=== PATIENT | male | born 1950 | race Caucasian/White ===

== ENCOUNTER 2019-07-01 07:38 | Inpatient (IN) | payer MEDICAID ==
[~2019-07-01] VITALS: Ht 170.2 cm; Wt 84.4 kg
[2019-07-01] MEDS ORDERED: ACETAMINOPHEN 500MG TABLET ONE (08:18)
[2019-07-01 09:13] LABS: HEMATOCRIT. 38.1 % (42.0-52.0); HEMOGLOBIN. 13.3 g/dL (14.0-18.0); MEAN CORPUSCULAR HEMOGLOBIN 31.3 pg (28.0-32.0); MEAN CORPUSCULAR VOLUME 89.6 fL (80.0-94.0); MEAN PLATELET VOLUME 6.8 fl (7.4-10.4); PLATELET 238 x1000/uL (130-400); RED BLOOD CELL COUNT 4.25 mill/uL (4.7-6.1); RED CELL DISTRIBUTION WIDTH 12.8 % (11.6-14.6)
[2019-07-01 09:19] LABS: CHLORIDE 106 mEq/L (98-107)
[2019-07-01 09:27] LABS: CREATINE KINASE 107 IU/L (39-308)
[2019-07-01 09:28] LABS: D-DIMER 0.8 mg/L FEU (<0.50); PROTHROMBIN TIME 10.7 sec (9.6-11.0)
[2019-07-01 09:57] LABS: PLATELET ESTIMATE NORMAL
[2019-07-01] MEDS ORDERED: TAMS-11 MT (10:40)
[2019-07-01] MEDS ORDERED: AMLO-375 MT (10:40)
[2019-07-01 12:30] VITALS: BP 145/67
[2019-07-01 12:41] VITALS: BP 145/67
[2019-07-01 13:05] LABS: CLARITY URINE CLEAR (CLEAR); COLOR URINE DARK YELLOW (YELLOW); KETONES URINE 1+ (NEGATIVE); LEUKOCYTE ESTERASE URINE NEGATIVE (NEGATIVE); NITRITE URINE NEGATIVE (NEGATIVE); OCCULT BLOOD URINE NEGATIVE (NEGATIVE); PH URINE 5.5 (4.5-8.0); PROTEIN URINE 2+ (NEGATIVE)
[2019-07-01] MEDS ORDERED: ZOLPIDEM TARTRATE 5MG TABLET PO PRN (14:00)
[2019-07-01] MEDS ORDERED: GUAIFENESIN 200MG/10ML SUGAR FREE UDC PO PRN (14:00)
[2019-07-01] MEDS ORDERED: MAGNESIUM/ALUMINUM HYDROXIDE/SIMETHICONE 30ML UDC PO PRN (14:00)
[2019-07-01] MEDS ORDERED: DIPHENHYDRAMINE 50MG/ML VIAL IV PRN (14:00)
[2019-07-01] MEDS ORDERED: ONDANSETRON HCL 4MG/2ML INJ IV PRN (14:00)
[2019-07-01] MEDS ORDERED: ALBUTEROL 6.7GM HFA INHALER ORI PRN (14:00)
[2019-07-01] MEDS: SODIUM CHLORIDE 0.9% INJ 3ML FLUSH IVF SCH ×2 (14:15→21:23)
[2019-07-01] MEDS ORDERED: ENOXAPARIN 40MG/0.4ML SYR SUBCUT SCH (15:00)
[2019-07-01] MEDS ORDERED: POTASSIUM CHLORIDE 20MEQ TABLET SR PO NR (15:00)
[2019-07-01 16:00] VITALS: BP 115/80
[2019-07-01] MEDS: AZITHROMYCIN 250 MG in DEXT 5% WATER 250 ML IV SCH (16:48)
[2019-07-01] MEDS: ACETAMINOPHEN 325MG TABLET PO PRN ×2 (17:44→21:46)
[2019-07-01 20:36] VITALS: BP 156/74
[2019-07-01] MEDS: GUAIFENESIN 600MG ER TABLET PO SCH (21:23)
[2019-07-01] MEDS: METHYLPREDNISOLONE SOD SUCC 40 MG/ML VIAL IV SCH (23:01)
[2019-07-01] MEDS ORDERED: ENOXAPARIN 30MG/0.3ML SYR SUBCUT SCH (23:30)
[2019-07-02 00:50] VITALS: BP 111/63
[2019-07-02 04:00] VITALS: BP 111/68
[2019-07-02] MEDS: SODIUM CHLORIDE 0.9% INJ 3ML FLUSH IVF SCH ×3 (05:07→21:23)
[2019-07-02 08:00] VITALS: BP 120/69
[2019-07-02] MEDS: ENOXAPARIN 80MG/0.8ML SYR SUBCUT SCH ×2 (08:52→21:22)
[2019-07-02] MEDS: METHYLPREDNISOLONE SOD SUCC 40 MG/ML VIAL IV SCH (08:52)
[2019-07-02] MEDS: GUAIFENESIN 600MG ER TABLET PO SCH ×2 (08:53→21:22)
[2019-07-02 12:00] VITALS: BP 132/75
[2019-07-02] MEDS: CEFTRIAXONE 1 G PREMIX 50 ML IV SCH (13:18)
[2019-07-02] MEDS: BENZONATATE 100MG CAPSULE PO PRN (14:39)
[2019-07-02] MEDS: ALBUTEROL 6.7GM HFA INHALER ORI SCH ×2 (15:13→19:55)
[2019-07-02 16:00] VITALS: BP 118/85
[2019-07-02] MEDS: AZITHROMYCIN 250 MG in DEXT 5% WATER 250 ML IV SCH (16:32)
[2019-07-02 20:00] VITALS: BP 99/68
[2019-07-03] VITALS: BP 112/69
[2019-07-03] MEDS: ALBUTEROL 6.7GM HFA INHALER ORI SCH ×4 (02:05→20:57)
[2019-07-03 04:00] VITALS: BP 126/70
[2019-07-03] MEDS: SODIUM CHLORIDE 0.9% INJ 3ML FLUSH IVF SCH ×3 (06:08→21:51)
[2019-07-03 08:00] VITALS: BP 134/71
[2019-07-03] MEDS: ENOXAPARIN 80MG/0.8ML SYR SUBCUT SCH ×2 (08:01→20:27)
[2019-07-03] MEDS: GUAIFENESIN 600MG ER TABLET PO SCH ×2 (08:01→20:24)
[2019-07-03 12:00] VITALS: BP 142/77
[2019-07-03] MEDS: CEFTRIAXONE 1 G PREMIX 50 ML IV SCH (13:26)
[2019-07-03] MEDS: BENZONATATE 100MG CAPSULE PO PRN (13:26)
[2019-07-03 16:00] VITALS: BP 154/78
[2019-07-03] MEDS: AZITHROMYCIN 250 MG in DEXT 5% WATER 250 ML IV SCH (16:00)
[2019-07-03] MEDS: PROMETHAZINE/DEXTROMETHORPHAN 6.25-15MG/5ML BOTTLE 120ML PO PRN (16:00)
[2019-07-03 20:00] VITALS: BP 142/74
[2019-07-04] VITALS: BP 124/71
[2019-07-04] MEDS: ALBUTEROL 6.7GM HFA INHALER ORI SCH ×4 (01:18→21:36)
[2019-07-04 04:00] VITALS: BP 137/75
[2019-07-04] MEDS: SODIUM CHLORIDE 0.9% INJ 3ML FLUSH IVF SCH ×3 (06:55→21:36)
[2019-07-04 08:00] VITALS: BP 130/88
[2019-07-04] MEDS: GUAIFENESIN 600MG ER TABLET PO SCH ×2 (08:33→21:33)
[2019-07-04] MEDS: AZITHROMYCIN 250 MG TABLET PO SCH (08:33)
[2019-07-04] MEDS: ENOXAPARIN 80MG/0.8ML SYR SUBCUT SCH ×2 (08:33→21:35)
[2019-07-04 10:11] LABS: BG BASE EXCESS 1.6 mmol/L (-2.0-2.0); BG CARBOXYHEMOGLOBIN 0.3 % (0.5-1.5); BG FRACTION INSPIRED OXYGEN 99.9; BG HCO3 ACT 24.9 mmol/L (22.0-26.0); BG METHEMOGLOBIN 0.1 % (0.0-1.5); BG OXYHEMOGLOBIN 91.6 % (94.0-97.0); BG PCO2 35.3 mmHg (35.0-45.0); BG PH 7.467 (7.350-7.450); BG PO2 60.4 mmHg (75.0-100.0); BG SAMPLE SITE RIGHT RADIAL; BG TOTAL HEMOGLOBIN 14.2 g/dL (12.0-18.0); BG VENT MODE MASK - NRB
[2019-07-04 12:00] VITALS: BP 153/70
[2019-07-04] MEDS ORDERED: REMDESIVIR 200 MG in SODIUM CHLORIDE 0.9% 250 ML IV SCH (12:00)
[2019-07-04] MEDS: PROMETHAZINE/DEXTROMETHORPHAN 6.25-15MG/5ML BOTTLE 120ML PO PRN (12:26)
[2019-07-04] MEDS: CEFTRIAXONE 1 G PREMIX 50 ML IV SCH (13:58)
[2019-07-04 16:00] VITALS: BP 139/68
[2019-07-04 20:00] VITALS: BP 133/71
[2019-07-04] MEDS: ACETAMINOPHEN 325MG TABLET PO PRN (21:34)
[2019-07-04] MEDS: BENZONATATE 100MG CAPSULE PO PRN (21:34)
[2019-07-05] VITALS (54 sets, daily range): BP systolic 84–183; BP diastolic 50–95
[2019-07-05] MEDS: ALBUTEROL 6.7GM HFA INHALER ORI SCH ×2 (01:46→12:07)
[2019-07-05 05:47] LABS: CHLORIDE 109 mEq/L (98-107)
[2019-07-05 05:48] LABS: BASOPHILS % 0.3 % (0.0-2.0); EOSINOPHILS % 0.2 % (0.0-5.0); HEMATOCRIT. 38.3 % (42.0-52.0); HEMOGLOBIN. 13.4 g/dL (14.0-18.0); LYMPHOCYTES % 7.6 % (20.0-50.0); MEAN CORPUSCULAR HEMOGLOBIN 31.3 pg (28.0-32.0); MEAN CORPUSCULAR VOLUME 89.7 fL (80.0-94.0); MONOCYTES % 7.4 % (2.0-8.0); NEUTROPHILS % 84.5 % (40.0-76.0); PLATELET 368 x1000/uL (130-400); RED BLOOD CELL COUNT 4.27 mill/uL (4.7-6.1); RED CELL DISTRIBUTION WIDTH 12.9 % (11.6-14.6)
[2019-07-05] MEDS: SODIUM CHLORIDE 0.9% INJ 3ML FLUSH IVF SCH ×3 (06:10→22:06)
[2019-07-05] MEDS: BENZONATATE 100MG CAPSULE PO PRN (06:33)
[2019-07-05] MEDS: GUAIFENESIN 600MG ER TABLET PO SCH (08:28)
[2019-07-05] MEDS: AZITHROMYCIN 250 MG TABLET PO SCH (08:28)
[2019-07-05] MEDS: PROMETHAZINE/DEXTROMETHORPHAN 6.25-15MG/5ML BOTTLE 120ML PO PRN (08:28)
[2019-07-05] MEDS: ENOXAPARIN 80MG/0.8ML SYR SUBCUT SCH ×2 (08:28→20:53)
[2019-07-05] MEDS ORDERED: REMDESIVIR 100 MG in SODIUM CHLORIDE 0.9% 250 ML IV SCH (12:00)
[2019-07-05] MEDS: ACETAMINOPHEN 325MG TABLET PO PRN ×2 (13:02→20:53)
[2019-07-05] MEDS ORDERED: IPRATROPIUM/ALBUTEROL 0.5-3(2.5)MG/3ML NEB HHN PRN (14:15)
[2019-07-05] MEDS ORDERED: LORAZEPAM 2MG/ML CPJ ONE (15:45)
[2019-07-05] MEDS ORDERED: MIDAZOLAM HCL 50 MG in DEXTROSE 5% WATER 40 ML IV PRN (16:00)
[2019-07-05] MEDS ORDERED: LORAZEPAM 2MG/ML CPJ IV NR (16:15)
[2019-07-05 16:24] LABS: BG BASE EXCESS -1.2 mmol/L (-2.0-2.0); BG CARBOXYHEMOGLOBIN 0.2 % (0.5-1.5); BG DEOXYHEMOGLOBIN 13.8 % (0.0-5.0); BG FRACTION INSPIRED OXYGEN 100; BG HCO3 ACT 25.6 mmol/L (22.0-26.0); BG METHEMOGLOBIN 0.2 % (0.0-1.5); BG OXYGEN SATURATION 86.1 % (92.0-98.5); BG OXYHEMOGLOBIN 85.8 % (94.0-97.0); BG PCO2 51.5 mmHg (35.0-45.0); BG PH 7.315 (7.350-7.450); BG PO2 57.3 mmHg (75.0-100.0); BG SAMPLE SITE LEFT RADIAL; BG TIDAL VOLUME(mL) 500 mL; BG VENT MODE VENT - A/C; BG VENT RATE 18 set
[2019-07-05] MEDS: CEFTRIAXONE 1 G PREMIX 50 ML IV SCH (17:44)
[2019-07-05] MEDS: FENTANYL CITRATE/PF 1,000 MCG in SODIUM CHLORIDE 0.9% 80 ML IV PRN (17:49)
[2019-07-05] MEDS ORDERED: IPRATROPIUM/ALBUTEROL 0.5-3(2.5)MG/3ML NEB HHN SCH (18:00)
[2019-07-05 19:10] LABS: BG CARBOXYHEMOGLOBIN 0.3 % (0.5-1.5); BG DEOXYHEMOGLOBIN 0.7 % (0.0-5.0); BG FRACTION INSPIRED OXYGEN 100; BG HCO3 ACT 23.8 mmol/L (22.0-26.0); BG METHEMOGLOBIN 0.3 % (0.0-1.5); BG OXYGEN SATURATION 99.3 % (92.0-98.5); BG OXYHEMOGLOBIN 98.7 % (94.0-97.0); BG PH 7.393 (7.350-7.450); BG PO2 308.3 mmHg (75.0-100.0); BG SAMPLE SITE RIGHT RADIAL; BG TIDAL VOLUME(mL) 500 mL; BG TOTAL HEMOGLOBIN 11.6 g/dL (12.0-18.0); BG VENT MODE PRVC; BG VENT RATE 22 set
[2019-07-05] MEDS: MIDAZOLAM HCL 100 MG in DEXT 5% WATER 80 ML IV PRN (20:46)
[2019-07-05] MEDS: DEXT 5%/0.45% NACL 1000ML 1,000 ML IV SCH (20:46)
[2019-07-05] MEDS: NOREPINEPHRINE 4 MG in DEXT 5% WATER 246 ML IV PRN (23:49)
[2019-07-06] VITALS (89 sets, daily range): BP systolic 93–134; BP diastolic 56–77
[2019-07-06] MEDS: FENTANYL CITRATE/PF 1,000 MCG in SODIUM CHLORIDE 0.9% 80 ML IV PRN ×2 (00:42→16:13)
[2019-07-06 05:41] LABS: HEMATOCRIT. 35.1 % (42.0-52.0); HEMOGLOBIN. 12.2 g/dL (14.0-18.0); MEAN CORPUSCULAR HEMOGLOBIN 31.4 pg (28.0-32.0); MEAN CORPUSCULAR VOLUME 90.9 fL (80.0-94.0); MEAN PLATELET VOLUME 7.1 fl (7.4-10.4); PLATELET 392 x1000/uL (130-400); RED BLOOD CELL COUNT 3.87 mill/uL (4.7-6.1); RED CELL DISTRIBUTION WIDTH 12.7 % (11.6-14.6)
[2019-07-06] MEDS: SODIUM CHLORIDE 0.9% INJ 3ML FLUSH IVF SCH ×3 (05:46→22:00)
[2019-07-06 05:48] LABS: CHLORIDE 111 mEq/L (98-107)
[2019-07-06] MEDS: ENOXAPARIN 80MG/0.8ML SYR SUBCUT SCH ×2 (09:16→20:21)
[2019-07-06 09:22] LABS: BG BASE EXCESS 0.9 mmol/L (-2.0-2.0); BG DEOXYHEMOGLOBIN 5.3 % (0.0-5.0); BG FRACTION INSPIRED OXYGEN 75; BG HCO3 ACT 25.9 mmol/L (22.0-26.0); BG METHEMOGLOBIN 0.1 % (0.0-1.5); BG OXYGEN SATURATION 94.7 % (92.0-98.5); BG OXYHEMOGLOBIN 94.6 % (94.0-97.0); BG PCO2 42.9 mmHg (35.0-45.0); BG PH 7.399 (7.350-7.450); BG PO2 76.9 mmHg (75.0-100.0); BG SAMPLE SITE RIGHT BRACHIAL; BG TIDAL VOLUME(mL) 500 mL; BG TOTAL HEMOGLOBIN 12.2 g/dL (12.0-18.0); BG VENT MODE PRVC; BG VENT RATE 22 set
[2019-07-06 10:21] LABS: PLATELET ESTIMATE NORMAL
[2019-07-06] MEDS: MIDAZOLAM HCL 100 MG in DEXT 5% WATER 80 ML IV PRN (12:30)
[2019-07-06] MEDS: CEFTRIAXONE 1 G PREMIX 50 ML IV SCH (14:00)
[2019-07-06] MEDS ORDERED: IPRATROPIUM/ALBUTEROL 0.5-3(2.5)MG/3ML NEB HHN SCH (15:15)
[2019-07-06] MEDS: DEXT 5%/0.45% NACL 1000ML 1,000 ML IV SCH (16:12)
[2019-07-06] MEDS: ACETAMINOPHEN 325MG TABLET PO PRN (20:29)
[2019-07-07] VITALS (93 sets, daily range): BP systolic 74–146; BP diastolic 46–78
[2019-07-07] MEDS: NOREPINEPHRINE 4 MG in DEXT 5% WATER 246 ML IV PRN (02:00)
[2019-07-07 05:42] LABS: HEMATOCRIT. 33.2 % (42.0-52.0); HEMOGLOBIN. 11.5 g/dL (14.0-18.0); MEAN CORPUSCULAR HEMOGLOBIN 31.2 pg (28.0-32.0); MEAN CORPUSCULAR VOLUME 90.1 fL (80.0-94.0); MEAN PLATELET VOLUME 7.1 fl (7.4-10.4); RED BLOOD CELL COUNT 3.69 mill/uL (4.7-6.1); RED CELL DISTRIBUTION WIDTH 12.9 % (11.6-14.6)
[2019-07-07 05:51] LABS: CHLORIDE 109 mEq/L (98-107)
[2019-07-07] MEDS: FENTANYL CITRATE/PF 1,000 MCG in SODIUM CHLORIDE 0.9% 80 ML IV PRN ×2 (06:29→20:52)
[2019-07-07] MEDS: SODIUM CHLORIDE 0.9% INJ 3ML FLUSH IVF SCH ×3 (06:52→20:52)
[2019-07-07 07:14] LABS: PLATELET 384 x1000/uL (130-400); PLATELET ESTIMATE INCREASED
[2019-07-07] MEDS: ENOXAPARIN 80MG/0.8ML SYR SUBCUT SCH ×2 (08:07→20:51)
[2019-07-07] MEDS: MIDAZOLAM HCL 100 MG in DEXT 5% WATER 80 ML IV PRN (08:08)
[2019-07-07 09:04] LABS: BG BASE EXCESS -0.9 mmol/L (-2.0-2.0); BG CARBOXYHEMOGLOBIN 0.2 % (0.5-1.5); BG FRACTION INSPIRED OXYGEN 75; BG HCO3 ACT 23.6 mmol/L (22.0-26.0); BG METHEMOGLOBIN 0.3 % (0.0-1.5); BG OXYHEMOGLOBIN 94.5 % (94.0-97.0); BG PCO2 38.5 mmHg (35.0-45.0); BG PH 7.405 (7.350-7.450); BG PO2 76.4 mmHg (75.0-100.0); BG SAMPLE SITE RIGHT BRACHIAL; BG TIDAL VOLUME(mL) 500 mL; BG TOTAL HEMOGLOBIN 11.2 g/dL (12.0-18.0); BG VENT MODE PRVC; BG VENT RATE 22 set
[2019-07-07] MEDS: DEXT 5%/0.45% NACL 1000ML 1,000 ML IV SCH (12:46)
[2019-07-07] MEDS: THIAMINE HCL 100MG TABLET PO SCH (13:43)
[2019-07-07] MEDS: FOLIC ACID 1MG TABLET PO SCH (13:44)
[2019-07-07] MEDS: CEFTRIAXONE 1 G PREMIX 50 ML IV SCH (13:44)
[2019-07-07] MEDS: ACETAMINOPHEN 325MG TABLET PO PRN (23:27)
[2019-07-08] VITALS (94 sets, daily range): BP systolic 86–134; BP diastolic 45–70
[2019-07-08] MEDS: DEXT 5%/0.45% NACL 1000ML 1,000 ML IV SCH ×2 (04:09→22:12)
[2019-07-08] MEDS: MIDAZOLAM HCL 100 MG in DEXT 5% WATER 80 ML IV PRN ×2 (04:36→23:47)
[2019-07-08] MEDS: SODIUM CHLORIDE 0.9% INJ 3ML FLUSH IVF SCH ×3 (05:02→20:41)
[2019-07-08 05:49] LABS: HEMATOCRIT. 30.9 % (42.0-52.0); HEMOGLOBIN. 10.7 g/dL (14.0-18.0); MEAN CORPUSCULAR HEMOGLOBIN 31.5 pg (28.0-32.0); MEAN CORPUSCULAR VOLUME 91.1 fL (80.0-94.0); MEAN PLATELET VOLUME 7.1 fl (7.4-10.4); PLATELET 348 x1000/uL (130-400); RED CELL DISTRIBUTION WIDTH 13.4 % (11.6-14.6)
[2019-07-08 06:08] LABS: CHLORIDE 111 mEq/L (98-107)
[2019-07-08] MEDS: ALBUTEROL 6.7GM HFA INHALER ORI SCH ×2 (08:32→13:26)
[2019-07-08] MEDS: THIAMINE HCL 100MG TABLET PO SCH (09:56)
[2019-07-08] MEDS: FOLIC ACID 1MG TABLET PO SCH (09:56)
[2019-07-08] MEDS: ENOXAPARIN 80MG/0.8ML SYR SUBCUT SCH ×2 (09:57→20:40)
[2019-07-08] MEDS: ACETAMINOPHEN 325MG TABLET PO PRN (10:25)
[2019-07-08 13:20] LABS: PLATELET ESTIMATE NORMAL
[2019-07-08] MEDS: METHYLPREDNISOLONE SOD SUCC 40 MG/ML VIAL IV SCH (17:00)
[2019-07-08] MEDS: FENTANYL CITRATE/PF 1,000 MCG in SODIUM CHLORIDE 0.9% 80 ML IV PRN (20:41)
[2019-07-09] VITALS (93 sets, daily range): BP systolic 98–146; BP diastolic 53–89
[2019-07-09 05:58] LABS: CHLORIDE 109 mEq/L (98-107)
[2019-07-09] MEDS: SODIUM CHLORIDE 0.9% INJ 3ML FLUSH IVF SCH ×3 (06:46→20:48)
[2019-07-09 08:26] LABS: BG BASE EXCESS -1.7 mmol/L (-2.0-2.0); BG CARBOXYHEMOGLOBIN 0.3 % (0.5-1.5); BG DEOXYHEMOGLOBIN 2.9 % (0.0-5.0); BG FRACTION INSPIRED OXYGEN 90; BG HCO3 ACT 24.1 mmol/L (22.0-26.0); BG OXYGEN SATURATION 97.1 % (92.0-98.5); BG OXYHEMOGLOBIN 96.8 % (94.0-97.0); BG PCO2 44.9 mmHg (35.0-45.0); BG PH 7.347 (7.350-7.450); BG PO2 101.1 mmHg (75.0-100.0); BG SAMPLE SITE RIGHT RADIAL; BG TIDAL VOLUME(mL) 500 mL; BG TOTAL HEMOGLOBIN 11.8 g/dL (12.0-18.0); BG VENT MODE VENT- PRVC; BG VENT RATE 22 set
[2019-07-09] MEDS: THIAMINE HCL 100MG TABLET PO SCH (09:18)
[2019-07-09] MEDS: METHYLPREDNISOLONE SOD SUCC 40 MG/ML VIAL IV SCH ×2 (09:18→17:29)
[2019-07-09] MEDS: FOLIC ACID 1MG TABLET PO SCH (09:18)
[2019-07-09] MEDS: ENOXAPARIN 80MG/0.8ML SYR SUBCUT SCH ×2 (09:19→20:48)
[2019-07-09] MEDS: ALBUTEROL 6.7GM HFA INHALER ORI SCH ×4 (09:20→21:15)
[2019-07-09] MEDS: INSULIN GLARGINE UD 100 UNITS/ML SYR SUBCUT SCH ×2 (10:00→20:47)
[2019-07-09] MEDS: BLOOD SUGAR DIAGNOSTIC STRIP TEST SCH ×2 (13:15→17:45)
[2019-07-09] MEDS ORDERED: VANCOMYCIN 1500MG in DEXTROSE 5% WATER 250ML IV NR (16:30)
[2019-07-09] MEDS: CEFEPIME 1,000 MG in DEXTROSE 5% WATER 50 ML IV SCH (17:29)
[2019-07-09] MEDS: INSULIN LISPRO 100 UNITS/ML SUBCUT SCH ×2 (17:29→20:47)
[2019-07-09] MEDS: MIDAZOLAM HCL 100 MG in DEXT 5% WATER 80 ML IV PRN (22:34)
[2019-07-09] MEDS: FENTANYL CITRATE/PF 1,000 MCG in SODIUM CHLORIDE 0.9% 80 ML IV PRN (22:34)
[2019-07-10] VITALS (96 sets, daily range): BP systolic 100–163; BP diastolic 41–120
[2019-07-10] MEDS: ALBUTEROL 6.7GM HFA INHALER ORI SCH ×6 (01:00→20:50)
[2019-07-10] MEDS: BLOOD SUGAR DIAGNOSTIC STRIP TEST SCH ×4 (01:59→19:15)
[2019-07-10] MEDS: SODIUM CHLORIDE 0.9% INJ 3ML FLUSH IVF SCH ×3 (03:31→21:01)
[2019-07-10] MEDS: CEFEPIME 1,000 MG in DEXTROSE 5% WATER 50 ML IV SCH ×2 (05:45→17:27)
[2019-07-10] MEDS: VANCOMYCIN 1 G PREMIX 200 ML IV SCH ×2 (05:46→17:51)
[2019-07-10] MEDS: INSULIN LISPRO 100 UNITS/ML SUBCUT SCH ×4 (05:48→20:29)
[2019-07-10 05:55] LABS: HEMATOCRIT. 30.6 % (42.0-52.0); HEMOGLOBIN. 10.5 g/dL (14.0-18.0); MEAN CORPUSCULAR HEMOGLOBIN 31.3 pg (28.0-32.0); MEAN CORPUSCULAR VOLUME 91.1 fL (80.0-94.0); MEAN PLATELET VOLUME 7.2 fl (7.4-10.4); PLATELET 446 x1000/uL (130-400); RED BLOOD CELL COUNT 3.35 mill/uL (4.7-6.1); RED CELL DISTRIBUTION WIDTH 13.1 % (11.6-14.6)
[2019-07-10 06:03] LABS: CHLORIDE 109 mEq/L (98-107)
[2019-07-10] MEDS: METHYLPREDNISOLONE SOD SUCC 40 MG/ML VIAL IV SCH ×2 (08:45→16:30)
[2019-07-10] MEDS: THIAMINE HCL 100MG TABLET PO SCH (08:45)
[2019-07-10] MEDS: FOLIC ACID 1MG TABLET PO SCH (08:48)
[2019-07-10] MEDS: ENOXAPARIN 80MG/0.8ML SYR SUBCUT SCH ×2 (08:48→20:28)
[2019-07-10 10:03] LABS: BG BASE EXCESS 0.2 mmol/L (-2.0-2.0); BG CARBOXYHEMOGLOBIN 0.3 % (0.5-1.5); BG DEOXYHEMOGLOBIN 13.9 % (0.0-5.0); BG FRACTION INSPIRED OXYGEN 65; BG HCO3 ACT 28.2 mmol/L (22.0-26.0); BG METHEMOGLOBIN 0.3 % (0.0-1.5); BG OXYHEMOGLOBIN 85.5 % (94.0-97.0); BG PCO2 61.3 mmHg (35.0-45.0); BG PO2 56.2 mmHg (75.0-100.0); BG SAMPLE SITE RIGHT RADIAL; BG TIDAL VOLUME(mL) 500 mL; BG TOTAL HEMOGLOBIN 12.8 g/dL (12.0-18.0); BG VENT MODE PRVC; BG VENT RATE 22 set
[2019-07-10 10:35] LABS: PLATELET ESTIMATE SLIGHTLY INCREASED
[2019-07-10] MEDS: INSULIN GLARGINE UD 100 UNITS/ML SYR SUBCUT SCH ×2 (10:41→21:04)
[2019-07-10] MEDS: FENTANYL CITRATE/PF 1,000 MCG in SODIUM CHLORIDE 0.9% 80 ML IV PRN ×2 (12:24→23:55)
[2019-07-10] MEDS: MIDAZOLAM HCL 100 MG in DEXT 5% WATER 80 ML IV PRN (17:28)
[2019-07-11] VITALS (43 sets, daily range): BP systolic 110–167; BP diastolic 55–90
[2019-07-11] MEDS: BLOOD SUGAR DIAGNOSTIC STRIP TEST SCH ×5 (00:17→21:00)
[2019-07-11 05:02] LABS: HEMATOCRIT. 30.8 % (42.0-52.0); HEMOGLOBIN. 10.5 g/dL (14.0-18.0); MEAN CORPUSCULAR HEMOGLOBIN 31.3 pg (28.0-32.0); MEAN CORPUSCULAR VOLUME 91.9 fL (80.0-94.0); MEAN PLATELET VOLUME 7.2 fl (7.4-10.4); PLATELET 448 x1000/uL (130-400); RED BLOOD CELL COUNT 3.35 mill/uL (4.7-6.1); RED CELL DISTRIBUTION WIDTH 13.2 % (11.6-14.6)
[2019-07-11 05:10] LABS: CHLORIDE 108 mEq/L (98-107)
[2019-07-11] MEDS: SODIUM CHLORIDE 0.9% INJ 3ML FLUSH IVF SCH ×3 (05:15→22:19)
[2019-07-11] MEDS: CEFEPIME 1,000 MG in DEXTROSE 5% WATER 50 ML IV SCH ×2 (05:15→16:26)
[2019-07-11] MEDS: VANCOMYCIN 1 G PREMIX 200 ML IV SCH ×2 (05:40→16:32)
[2019-07-11] MEDS: INSULIN LISPRO 100 UNITS/ML SUBCUT SCH ×4 (07:00→21:32)
[2019-07-11 08:15] LABS: BG BASE EXCESS 2.3 mmol/L (-2.0-2.0); BG CARBOXYHEMOGLOBIN 0.2 % (0.5-1.5); BG DEOXYHEMOGLOBIN 4.8 % (0.0-5.0); BG FRACTION INSPIRED OXYGEN 90; BG HCO3 ACT 27.8 mmol/L (22.0-26.0); BG METHEMOGLOBIN 0.3 % (0.0-1.5); BG OXYGEN SATURATION 95.2 % (92.0-98.5); BG OXYHEMOGLOBIN 94.7 % (94.0-97.0); BG PCO2 47.1 mmHg (35.0-45.0); BG PH 7.389 (7.350-7.450); BG PO2 76.4 mmHg (75.0-100.0); BG SAMPLE SITE RIGHT RADIAL; BG TIDAL VOLUME(mL) 500 mL; BG TOTAL HEMOGLOBIN 10.6 g/dL (12.0-18.0); BG VENT MODE VENT- PRVC; BG VENT RATE 26 set
[2019-07-11] MEDS: ENOXAPARIN 80MG/0.8ML SYR SUBCUT SCH ×2 (09:00→21:29)
[2019-07-11] MEDS: THIAMINE HCL 100MG TABLET PO SCH (09:15)
[2019-07-11] MEDS: FOLIC ACID 1MG TABLET PO SCH (09:15)
[2019-07-11] MEDS: METHYLPREDNISOLONE SOD SUCC 40 MG/ML VIAL IV SCH ×2 (09:15→16:32)
[2019-07-11] MEDS: ALBUTEROL 6.7GM HFA INHALER ORI SCH ×4 (09:24→20:30)
[2019-07-11] MEDS: INSULIN GLARGINE UD 100 UNITS/ML SYR SUBCUT SCH ×2 (09:41→21:37)
[2019-07-11 09:46] LABS: PLATELET ESTIMATE SLIGHTLY INCREASED
[2019-07-11] MEDS ORDERED: LIDOCAINE HCL 1% 20ML VIAL (Pyxis) INJ ONE (13:07)
[2019-07-11] MEDS: CLONIDINE 0.1MG TABLET PO PRN (21:29)
[2019-07-12] VITALS (23 sets, daily range): BP systolic 117–162; BP diastolic 60–82
[2019-07-12] MEDS: ALBUTEROL 6.7GM HFA INHALER ORI SCH ×5 (00:05→21:20)
[2019-07-12] MEDS: FENTANYL CITRATE/PF 1,000 MCG in SODIUM CHLORIDE 0.9% 80 ML IV PRN (00:54)
[2019-07-12] MEDS: CEFEPIME 1,000 MG in DEXTROSE 5% WATER 50 ML IV SCH ×2 (05:22→19:53)
[2019-07-12 05:43] LABS: HEMATOCRIT. 29.6 % (42.0-52.0); HEMOGLOBIN. 10.3 g/dL (14.0-18.0); MEAN CORPUSCULAR HEMOGLOBIN 31.5 pg (28.0-32.0); MEAN CORPUSCULAR VOLUME 90.3 fL (80.0-94.0); MEAN PLATELET VOLUME 7.3 fl (7.4-10.4); PLATELET 457 x1000/uL (130-400); RED BLOOD CELL COUNT 3.27 mill/uL (4.7-6.1)
[2019-07-12 05:44] LABS: CHLORIDE 105 mEq/L (98-107)
[2019-07-12] MEDS: SODIUM CHLORIDE 0.9% INJ 3ML FLUSH IVF SCH ×3 (05:48→21:47)
[2019-07-12] MEDS: MIDAZOLAM HCL 100 MG in DEXT 5% WATER 80 ML IV PRN ×2 (05:53→19:49)
[2019-07-12] MEDS: VANCOMYCIN 1 G PREMIX 200 ML IV SCH ×2 (06:08→17:57)
[2019-07-12] MEDS: BLOOD SUGAR DIAGNOSTIC STRIP TEST SCH ×4 (06:08→21:12)
[2019-07-12] MEDS: INSULIN LISPRO 100 UNITS/ML SUBCUT SCH ×4 (06:09→21:47)
[2019-07-12] MEDS: FOLIC ACID 1MG TABLET PO SCH (09:19)
[2019-07-12] MEDS: THIAMINE HCL 100MG TABLET PO SCH (09:19)
[2019-07-12] MEDS: METHYLPREDNISOLONE SOD SUCC 40 MG/ML VIAL IV SCH ×2 (09:19→17:00)
[2019-07-12] MEDS: ENOXAPARIN 80MG/0.8ML SYR SUBCUT SCH ×2 (09:19→21:46)
[2019-07-12 09:30] LABS: BG BASE EXCESS 6.8 mmol/L (-2.0-2.0); BG CARBOXYHEMOGLOBIN 0.2 % (0.5-1.5); BG DEOXYHEMOGLOBIN 3.8 % (0.0-5.0); BG FRACTION INSPIRED OXYGEN 95; BG HCO3 ACT 31.2 mmol/L (22.0-26.0); BG METHEMOGLOBIN 0.3 % (0.0-1.5); BG OXYGEN SATURATION 96.2 % (92.0-98.5); BG OXYHEMOGLOBIN 95.7 % (94.0-97.0); BG PCO2 43.9 mmHg (35.0-45.0); BG PO2 87.7 mmHg (75.0-100.0); BG SAMPLE SITE RIGHT RADIAL; BG TIDAL VOLUME(mL) 500 mL; BG TOTAL HEMOGLOBIN 10.3 g/dL (12.0-18.0); BG VENT MODE PRVC; BG VENT RATE 26 set
[2019-07-12] MEDS: INSULIN GLARGINE UD 100 UNITS/ML SYR SUBCUT SCH ×2 (10:00→21:47)
[2019-07-12 14:07] LABS: PLATELET ESTIMATE MARKEDLY INCREASED
[2019-07-13] VITALS (58 sets, daily range): BP systolic 107–198; BP diastolic 60–93
[2019-07-13] MEDS: ALBUTEROL 6.7GM HFA INHALER ORI SCH ×5 (00:30→15:38)
[2019-07-13] MEDS: FENTANYL CITRATE/PF 1,000 MCG in SODIUM CHLORIDE 0.9% 80 ML IV PRN ×2 (02:56→15:59)
[2019-07-13] MEDS: CEFEPIME 1,000 MG in DEXTROSE 5% WATER 50 ML IV SCH ×2 (05:07→18:09)
[2019-07-13 06:06] LABS: CHLORIDE 107 mEq/L (98-107)
[2019-07-13] MEDS: BLOOD SUGAR DIAGNOSTIC STRIP TEST SCH ×3 (06:07→20:40)
[2019-07-13] MEDS: SODIUM CHLORIDE 0.9% INJ 3ML FLUSH IVF SCH ×3 (06:07→20:40)
[2019-07-13] MEDS: INSULIN LISPRO 100 UNITS/ML SUBCUT SCH ×3 (06:08→20:38)
[2019-07-13] MEDS: VANCOMYCIN 1 G PREMIX 200 ML IV SCH ×2 (06:08→18:11)
[2019-07-13 08:29] LABS: BG BASE EXCESS 6.2 mmol/L (-2.0-2.0); BG CARBOXYHEMOGLOBIN 0.1 % (0.5-1.5); BG DEOXYHEMOGLOBIN 8.3 % (0.0-5.0); BG HCO3 ACT 31.1 mmol/L (22.0-26.0); BG METHEMOGLOBIN 0.4 % (0.0-1.5); BG OXYGEN SATURATION 91.7 % (92.0-98.5); BG OXYHEMOGLOBIN 91.2 % (94.0-97.0); BG PCO2 46.4 mmHg (35.0-45.0); BG PH 7.444 (7.350-7.450); BG PO2 63.5 mmHg (75.0-100.0); BG SAMPLE SITE RIGHT RADIAL; BG TIDAL VOLUME(mL) 500 mL; BG TOTAL HEMOGLOBIN 11.1 g/dL (12.0-18.0); BG VENT MODE VENT - A/C; BG VENT RATE 24 set
[2019-07-13] MEDS: METHYLPREDNISOLONE SOD SUCC 40 MG/ML VIAL IV SCH ×2 (08:50→18:09)
[2019-07-13] MEDS: FOLIC ACID 1MG TABLET PO SCH (08:50)
[2019-07-13] MEDS: THIAMINE HCL 100MG TABLET PO SCH (08:50)
[2019-07-13] MEDS: ENOXAPARIN 80MG/0.8ML SYR SUBCUT SCH ×2 (08:51→20:40)
[2019-07-13] MEDS: INSULIN GLARGINE UD 100 UNITS/ML SYR SUBCUT SCH ×2 (09:00→22:03)
[2019-07-13] MEDS: MIDAZOLAM HCL 100 MG in DEXT 5% WATER 80 ML IV PRN (10:00)
[2019-07-13] MEDS: CLONIDINE 0.1MG TABLET PO PRN (18:18)
[2019-07-13] MEDS: AMLODIPINE 5MG TABLET NG SCH ×2 (20:40→21:00)
[2019-07-14] VITALS (78 sets, daily range): BP systolic 93–156; BP diastolic 51–82
[2019-07-14] MEDS: ALBUTEROL 6.7GM HFA INHALER ORI SCH ×6 (00:30→16:55)
[2019-07-14] MEDS: MIDAZOLAM HCL 100 MG in DEXT 5% WATER 80 ML IV PRN ×2 (00:32→12:33)
[2019-07-14 02:15] LABS: BG BASE EXCESS 7.3 mmol/L (-2.0-2.0); BG CARBOXYHEMOGLOBIN 0.3 % (0.5-1.5); BG DEOXYHEMOGLOBIN 7.8 % (0.0-5.0); BG FRACTION INSPIRED OXYGEN 100; BG HCO3 ACT 32.6 mmol/L (22.0-26.0); BG METHEMOGLOBIN 0.1 % (0.0-1.5); BG OXYGEN SATURATION 92.2 % (92.0-98.5); BG OXYHEMOGLOBIN 91.8 % (94.0-97.0); BG PCO2 49.5 mmHg (35.0-45.0); BG PH 7.437 (7.350-7.450); BG PO2 66.2 mmHg (75.0-100.0); BG SAMPLE SITE RIGHT RADIAL; BG TIDAL VOLUME(mL) 500 mL; BG TOTAL HEMOGLOBIN 11.6 g/dL (12.0-18.0); BG VENT MODE VENT - A/C; BG VENT RATE 24 set
[2019-07-14] MEDS: FENTANYL CITRATE/PF 1,000 MCG in SODIUM CHLORIDE 0.9% 80 ML IV PRN ×3 (03:02→19:28)
[2019-07-14] MEDS: CEFEPIME 1,000 MG in DEXTROSE 5% WATER 50 ML IV SCH ×2 (05:27→17:11)
[2019-07-14] MEDS: SODIUM CHLORIDE 0.9% INJ 3ML FLUSH IVF SCH ×3 (05:48→21:04)
[2019-07-14] MEDS: BLOOD SUGAR DIAGNOSTIC STRIP TEST SCH ×4 (05:48→22:03)
[2019-07-14] MEDS: INSULIN LISPRO 100 UNITS/ML SUBCUT SCH ×4 (05:48→22:07)
[2019-07-14] MEDS: VANCOMYCIN 1 G PREMIX 200 ML IV SCH ×2 (06:24→17:24)
[2019-07-14 07:59] LABS: BG BASE EXCESS 9.8 mmol/L (-2.0-2.0); BG CARBOXYHEMOGLOBIN 0.2 % (0.5-1.5); BG DEOXYHEMOGLOBIN 4.8 % (0.0-5.0); BG HCO3 ACT 36.1 mmol/L (22.0-26.0); BG OXYGEN SATURATION 95.2 % (92.0-98.5); BG PCO2 58.3 mmHg (35.0-45.0); BG PO2 83.8 mmHg (75.0-100.0); BG SAMPLE SITE RIGHT RADIAL; BG TIDAL VOLUME(mL) 500 mL; BG TOTAL HEMOGLOBIN 10.8 g/dL (12.0-18.0); BG VENT MODE VENT - A/C; BG VENT RATE 24 set
[2019-07-14] MEDS: METHYLPREDNISOLONE SOD SUCC 40 MG/ML VIAL IV SCH ×2 (08:35→16:47)
[2019-07-14] MEDS: THIAMINE HCL 100MG TABLET PO SCH (08:36)
[2019-07-14] MEDS: ENOXAPARIN 80MG/0.8ML SYR SUBCUT SCH ×2 (08:36→22:06)
[2019-07-14] MEDS: DOCUSATE SODIUM SUGAR FREE 100MG/10ML UDC NG SCH (08:36)
[2019-07-14] MEDS: FOLIC ACID 1MG TABLET PO SCH (08:37)
[2019-07-14] MEDS: INSULIN GLARGINE UD 100 UNITS/ML SYR SUBCUT SCH ×2 (09:51→22:07)
[2019-07-14] MEDS: AMLODIPINE 2.5MG TABLET NG SCH (12:27)
[2019-07-15] VITALS (96 sets, daily range): BP systolic 88–184; BP diastolic 45–110
[2019-07-15] MEDS: MIDAZOLAM HCL 100 MG in DEXT 5% WATER 80 ML IV PRN ×3 (00:38→20:51)
[2019-07-15] MEDS: FENTANYL CITRATE/PF 1,000 MCG in SODIUM CHLORIDE 0.9% 80 ML IV PRN ×3 (03:14→20:53)
[2019-07-15] MEDS: CLONIDINE 0.1MG TABLET PO PRN (04:22)
[2019-07-15] MEDS: SODIUM CHLORIDE 0.9% INJ 3ML FLUSH IVF SCH ×3 (05:03→21:04)
[2019-07-15] MEDS: CEFEPIME 1,000 MG in DEXTROSE 5% WATER 50 ML IV SCH ×2 (05:03→17:43)
[2019-07-15] MEDS: ALBUTEROL 6.7GM HFA INHALER ORI SCH ×3 (05:20→21:40)
[2019-07-15] MEDS: BLOOD SUGAR DIAGNOSTIC STRIP TEST SCH ×4 (05:22→23:17)
[2019-07-15] MEDS: INSULIN LISPRO 100 UNITS/ML SUBCUT SCH ×4 (05:23→23:17)
[2019-07-15] MEDS: VANCOMYCIN 1 G PREMIX 200 ML IV SCH ×2 (05:25→17:43)
[2019-07-15 06:08] LABS: HEMATOCRIT. 31.9 % (42.0-52.0); HEMOGLOBIN. 10.7 g/dL (14.0-18.0); MEAN CORPUSCULAR VOLUME 92.5 fL (80.0-94.0); MEAN PLATELET VOLUME 7.7 fl (7.4-10.4); PLATELET 478 x1000/uL (130-400); RED BLOOD CELL COUNT 3.45 mill/uL (4.7-6.1); RED CELL DISTRIBUTION WIDTH 12.9 % (11.6-14.6)
[2019-07-15 06:30] LABS: CHLORIDE 103 mEq/L (98-107)
[2019-07-15] MEDS: DOCUSATE SODIUM SUGAR FREE 100MG/10ML UDC NG SCH (09:03)
[2019-07-15] MEDS: INSULIN GLARGINE UD 100 UNITS/ML SYR SUBCUT SCH ×2 (09:03→21:06)
[2019-07-15] MEDS: METHYLPREDNISOLONE SOD SUCC 40 MG/ML VIAL IV SCH ×2 (09:03→16:28)
[2019-07-15] MEDS: FOLIC ACID 1MG TABLET PO SCH (09:04)
[2019-07-15] MEDS: ENOXAPARIN 80MG/0.8ML SYR SUBCUT SCH ×2 (09:04→20:53)
[2019-07-15] MEDS: THIAMINE HCL 100MG TABLET PO SCH (09:04)
[2019-07-15 09:10] LABS: BG BASE EXCESS 8.9 mmol/L (-2.0-2.0); BG CARBOXYHEMOGLOBIN 0.3 % (0.5-1.5); BG DEOXYHEMOGLOBIN 2.1 % (0.0-5.0); BG FRACTION INSPIRED OXYGEN 100; BG HCO3 ACT 35.2 mmol/L (22.0-26.0); BG METHEMOGLOBIN 0.3 % (0.0-1.5); BG OXYGEN SATURATION 97.9 % (92.0-98.5); BG OXYHEMOGLOBIN 97.3 % (94.0-97.0); BG PCO2 57.8 mmHg (35.0-45.0); BG PH 7.402 (7.350-7.450); BG PO2 111.6 mmHg (75.0-100.0); BG SAMPLE SITE RIGHT RADIAL; BG TIDAL VOLUME(mL) 500 mL; BG TOTAL HEMOGLOBIN 10.6 g/dL (12.0-18.0); BG VENT MODE VENT- PRVC; BG VENT RATE 24 set
[2019-07-15 10:18] LABS: PLATELET ESTIMATE INCREASED
[2019-07-16] VITALS (85 sets, daily range): BP systolic 86–178; BP diastolic 44–93
[2019-07-16] MEDS: ALBUTEROL 6.7GM HFA INHALER ORI SCH ×6 (01:00→20:10)
[2019-07-16] MEDS: CEFEPIME 1,000 MG in DEXTROSE 5% WATER 50 ML IV SCH ×2 (05:03→17:36)
[2019-07-16] MEDS: INSULIN LISPRO 100 UNITS/ML SUBCUT SCH ×4 (05:29→23:25)
[2019-07-16] MEDS: BLOOD SUGAR DIAGNOSTIC STRIP TEST SCH ×4 (05:29→23:17)
[2019-07-16] MEDS: SODIUM CHLORIDE 0.9% INJ 3ML FLUSH IVF SCH ×3 (05:29→22:03)
[2019-07-16] MEDS: VANCOMYCIN 1 G PREMIX 200 ML IV SCH ×2 (06:16→17:36)
[2019-07-16] MEDS: MIDAZOLAM HCL 100 MG in DEXT 5% WATER 80 ML IV PRN ×2 (06:31→23:17)
[2019-07-16] MEDS: FENTANYL CITRATE/PF 1,000 MCG in SODIUM CHLORIDE 0.9% 80 ML IV PRN ×2 (06:36→20:29)
[2019-07-16 08:25] LABS: BG BASE EXCESS 5.4 mmol/L (-2.0-2.0); BG CARBOXYHEMOGLOBIN 0.3 % (0.5-1.5); BG DEOXYHEMOGLOBIN 3.8 % (0.0-5.0); BG FRACTION INSPIRED OXYGEN 100; BG HCO3 ACT 30.7 mmol/L (22.0-26.0); BG METHEMOGLOBIN 0.3 % (0.0-1.5); BG OXYGEN SATURATION 96.2 % (92.0-98.5); BG OXYHEMOGLOBIN 95.6 % (94.0-97.0); BG PCO2 49.1 mmHg (35.0-45.0); BG PH 7.414 (7.350-7.450); BG PO2 84.6 mmHg (75.0-100.0); BG SAMPLE SITE RIGHT RADIAL; BG TIDAL VOLUME(mL) 500 mL; BG TOTAL HEMOGLOBIN 9.8 g/dL (12.0-18.0); BG VENT MODE VENT- PRVC; BG VENT RATE 24 set
[2019-07-16] MEDS: AMLODIPINE 2.5MG TABLET NG SCH (09:04)
[2019-07-16] MEDS: THIAMINE HCL 100MG TABLET PO SCH (09:04)
[2019-07-16] MEDS: FOLIC ACID 1MG TABLET PO SCH (09:04)
[2019-07-16] MEDS: METHYLPREDNISOLONE SOD SUCC 40 MG/ML VIAL IV SCH (09:04)
[2019-07-16] MEDS: DOCUSATE SODIUM SUGAR FREE 100MG/10ML UDC NG SCH (09:04)
[2019-07-16] MEDS: ENOXAPARIN 80MG/0.8ML SYR SUBCUT SCH ×2 (09:05→20:58)
[2019-07-16] MEDS: INSULIN GLARGINE UD 100 UNITS/ML SYR SUBCUT SCH ×2 (09:08→21:00)
[2019-07-16] MEDS: ACETAMINOPHEN 325MG TABLET PO PRN ×2 (12:54→20:58)
[2019-07-17] VITALS (78 sets, daily range): BP systolic 108–169; BP diastolic 55–87
[2019-07-17] MEDS: ALBUTEROL 6.7GM HFA INHALER ORI SCH ×6 (00:35→20:15)
[2019-07-17] MEDS: FENTANYL CITRATE/PF 1,000 MCG in SODIUM CHLORIDE 0.9% 80 ML IV PRN ×4 (02:08→23:25)
[2019-07-17] MEDS: ACETAMINOPHEN 325MG TABLET PO PRN ×2 (02:15→15:16)
[2019-07-17] MEDS: SODIUM CHLORIDE 0.9% INJ 3ML FLUSH IVF SCH ×3 (05:13→22:00)
[2019-07-17] MEDS: BLOOD SUGAR DIAGNOSTIC STRIP TEST SCH ×3 (05:14→17:21)
[2019-07-17] MEDS: INSULIN LISPRO 100 UNITS/ML SUBCUT SCH ×3 (05:22→17:29)
[2019-07-17 05:51] LABS: HEMATOCRIT. 26.9 % (42.0-52.0); HEMOGLOBIN. 8.9 g/dL (14.0-18.0); MEAN CORPUSCULAR HEMOGLOBIN 30.6 pg (28.0-32.0); MEAN CORPUSCULAR VOLUME 92.9 fL (80.0-94.0); MEAN PLATELET VOLUME 7.6 fl (7.4-10.4); PLATELET 391 x1000/uL (130-400); RED BLOOD CELL COUNT 2.89 mill/uL (4.7-6.1); RED CELL DISTRIBUTION WIDTH 13.1 % (11.6-14.6)
[2019-07-17 05:57] LABS: CHLORIDE 104 mEq/L (98-107)
[2019-07-17] MEDS: DOCUSATE SODIUM SUGAR FREE 100MG/10ML UDC NG SCH (08:22)
[2019-07-17] MEDS: METHYLPREDNISOLONE SOD SUCC 40 MG/ML VIAL IV SCH (08:22)
[2019-07-17] MEDS: ENOXAPARIN 80MG/0.8ML SYR SUBCUT SCH ×2 (08:22→21:14)
[2019-07-17] MEDS: THIAMINE HCL 100MG TABLET PO SCH (08:22)
[2019-07-17] MEDS: FOLIC ACID 1MG TABLET PO SCH (08:23)
[2019-07-17] MEDS: AMLODIPINE 2.5MG TABLET NG SCH ×3 (08:23→21:14)
[2019-07-17 09:33] LABS: PLATELET ESTIMATE NORMAL
[2019-07-17] MEDS ORDERED: SODIUM POLYSTYRENE SULFONATE 15 G/60 ML BOT NG SCH (10:00)
[2019-07-17] MEDS: INSULIN GLARGINE UD 100 UNITS/ML SYR SUBCUT SCH ×2 (11:56→21:16)
[2019-07-17] MEDS: CLONIDINE 0.1MG TABLET PO PRN (12:17)
[2019-07-17] MEDS: MIDAZOLAM HCL 100 MG in DEXT 5% WATER 80 ML IV PRN (14:30)
[2019-07-18] VITALS (93 sets, daily range): BP systolic 102–153; BP diastolic 53–75
[2019-07-18] MEDS: BLOOD SUGAR DIAGNOSTIC STRIP TEST SCH ×4 (00:17→18:23)
[2019-07-18] MEDS: INSULIN LISPRO 100 UNITS/ML SUBCUT SCH ×4 (00:18→18:00)
[2019-07-18] MEDS: ALBUTEROL 6.7GM HFA INHALER ORI SCH ×7 (04:00→23:55)
[2019-07-18] MEDS: FENTANYL CITRATE/PF 1,000 MCG in SODIUM CHLORIDE 0.9% 80 ML IV PRN ×4 (04:12→20:17)
[2019-07-18 05:07] LABS: HEMATOCRIT. 29.2 % (42.0-52.0); HEMOGLOBIN. 9.8 g/dL (14.0-18.0); MEAN CORPUSCULAR HEMOGLOBIN 31.1 pg (28.0-32.0); MEAN CORPUSCULAR VOLUME 92.9 fL (80.0-94.0); MEAN PLATELET VOLUME 7.7 fl (7.4-10.4); PLATELET 490 x1000/uL (130-400); RED BLOOD CELL COUNT 3.15 mill/uL (4.7-6.1); RED CELL DISTRIBUTION WIDTH 13.2 % (11.6-14.6)
[2019-07-18 05:16] LABS: CHLORIDE 107 mEq/L (98-107)
[2019-07-18] MEDS: MIDAZOLAM HCL 100 MG in DEXT 5% WATER 80 ML IV PRN (06:00)
[2019-07-18] MEDS: SODIUM CHLORIDE 0.9% INJ 3ML FLUSH IVF SCH ×3 (06:00→21:48)
[2019-07-18] MEDS: DEXTROSE 50% WATER 50ML SYRINGE IV PRN (06:11)
[2019-07-18 07:49] LABS: PLATELET ESTIMATE INCREASED
[2019-07-18 08:48] LABS: BG BASE EXCESS 14.4 mmol/L (-2.0-2.0); BG CARBOXYHEMOGLOBIN 0.3 % (0.5-1.5); BG FRACTION INSPIRED OXYGEN 100; BG HCO3 ACT 40.5 mmol/L (22.0-26.0); BG METHEMOGLOBIN 0.3 % (0.0-1.5); BG OXYHEMOGLOBIN 97.4 % (94.0-97.0); BG PCO2 61.6 mmHg (35.0-45.0); BG PH 7.436 (7.350-7.450); BG PO2 110.8 mmHg (75.0-100.0); BG SAMPLE SITE RIGHT RADIAL; BG TIDAL VOLUME(mL) 500 mL; BG TOTAL HEMOGLOBIN 9.2 g/dL (12.0-18.0); BG VENT MODE VENT- PRVC; BG VENT RATE 24 set
[2019-07-18] MEDS: DOCUSATE SODIUM SUGAR FREE 100MG/10ML UDC NG SCH (08:56)
[2019-07-18] MEDS: AMLODIPINE 2.5MG TABLET NG SCH ×2 (08:56→21:25)
[2019-07-18] MEDS: ENOXAPARIN 80MG/0.8ML SYR SUBCUT SCH ×2 (08:56→21:25)
[2019-07-18] MEDS: FOLIC ACID 1MG TABLET PO SCH (08:56)
[2019-07-18] MEDS: THIAMINE HCL 100MG TABLET PO SCH (08:56)
[2019-07-18] MEDS: INSULIN GLARGINE UD 100 UNITS/ML SYR SUBCUT SCH ×2 (09:38→21:48)
[2019-07-18] MEDS: ACETAMINOPHEN 325MG TABLET PO PRN ×2 (09:38→15:25)
[2019-07-18] MEDS: MEROPENEM 1,000 MG in SODIUM CHLORIDE 0.9% 100 ML IV SCH (17:52)
[2019-07-18] MEDS: AMIKACIN SULFATE 600 MG in SODIUM CHLORIDE 0.9% 100 ML IV SCH (18:34)
[2019-07-18 20:46] LABS: CLARITY URINE CLOUDY (CLEAR); COLOR URINE YELLOW (YELLOW); KETONES URINE NEGATIVE (NEGATIVE); LEUKOCYTE ESTERASE URINE NEGATIVE (NEGATIVE); NITRITE URINE NEGATIVE (NEGATIVE); OCCULT BLOOD URINE TRACE (NEGATIVE); PROTEIN URINE TRACE (NEGATIVE); SPECIFIC GRAVITY URINE 1.025 (1.005-1.030)
[2019-07-19] VITALS (69 sets, daily range): BP systolic 101–161; BP diastolic 54–88
[2019-07-19] MEDS: ACETAMINOPHEN 325MG TABLET PO PRN ×3 (00:07→17:17)
[2019-07-19] MEDS: MEROPENEM 1,000 MG in SODIUM CHLORIDE 0.9% 100 ML IV SCH ×3 (00:08→16:30)
[2019-07-19] MEDS: MIDAZOLAM HCL 100 MG in DEXT 5% WATER 80 ML IV PRN ×2 (00:08→23:32)
[2019-07-19] MEDS: FENTANYL CITRATE/PF 1,000 MCG in SODIUM CHLORIDE 0.9% 80 ML IV PRN ×2 (01:49→12:35)
[2019-07-19] MEDS: ALBUTEROL 6.7GM HFA INHALER ORI SCH ×5 (04:30→20:40)
[2019-07-19] MEDS: INSULIN LISPRO 100 UNITS/ML SUBCUT SCH ×4 (06:00→17:17)
[2019-07-19] MEDS: SODIUM CHLORIDE 0.9% INJ 3ML FLUSH IVF SCH ×3 (06:30→21:39)
[2019-07-19] MEDS: BLOOD SUGAR DIAGNOSTIC STRIP TEST SCH ×4 (06:30→17:17)
[2019-07-19] MEDS: AMIKACIN SULFATE 600 MG in SODIUM CHLORIDE 0.9% 100 ML IV SCH ×2 (06:36→18:18)
[2019-07-19 08:17] LABS: BG BASE EXCESS 14.1 mmol/L (-2.0-2.0); BG CARBOXYHEMOGLOBIN 0.3 % (0.5-1.5); BG HCO3 ACT 39.6 mmol/L (22.0-26.0); BG METHEMOGLOBIN 0.5 % (0.0-1.5); BG OXYHEMOGLOBIN 97.2 % (94.0-97.0); BG PCO2 55.9 mmHg (35.0-45.0); BG PH 7.468 (7.350-7.450); BG PO2 108.2 mmHg (75.0-100.0); BG SAMPLE SITE RIGHT RADIAL; BG TIDAL VOLUME(mL) 500 mL; BG VENT MODE VENT - A/C; BG VENT RATE 24 set
[2019-07-19] MEDS: DOCUSATE SODIUM SUGAR FREE 100MG/10ML UDC NG SCH (09:00)
[2019-07-19] MEDS: THIAMINE HCL 100MG TABLET PO SCH (09:00)
[2019-07-19] MEDS: ENOXAPARIN 80MG/0.8ML SYR SUBCUT SCH ×2 (09:00→21:30)
[2019-07-19] MEDS: AMLODIPINE 2.5MG TABLET NG SCH ×2 (09:00→21:31)
[2019-07-19] MEDS: FOLIC ACID 1MG TABLET PO SCH (09:00)
[2019-07-19] MEDS: INSULIN GLARGINE UD 100 UNITS/ML SYR SUBCUT SCH ×2 (12:17→21:39)
[2019-07-19] MEDS: COLISTIMETHATE SODIUM 150MG/VIAL INH SCH (21:46)
[2019-07-20] VITALS (96 sets, daily range): BP systolic 95–155; BP diastolic 54–81
[2019-07-20] MEDS: BLOOD SUGAR DIAGNOSTIC STRIP TEST SCH ×4 (00:19→11:58)
[2019-07-20] MEDS: MEROPENEM 1,000 MG in SODIUM CHLORIDE 0.9% 100 ML IV SCH ×3 (00:38→16:41)
[2019-07-20] MEDS: ALBUTEROL 6.7GM HFA INHALER ORI SCH ×6 (00:47→20:10)
[2019-07-20 05:49] LABS: HEMATOCRIT. 26.8 % (42.0-52.0); HEMOGLOBIN. 8.8 g/dL (14.0-18.0); MEAN CORPUSCULAR VOLUME 94.8 fL (80.0-94.0); MEAN PLATELET VOLUME 7.9 fl (7.4-10.4); PLATELET 400 x1000/uL (130-400); RED BLOOD CELL COUNT 2.83 mill/uL (4.7-6.1); RED CELL DISTRIBUTION WIDTH 13.7 % (11.6-14.6)
[2019-07-20 05:57] LABS: CHLORIDE 112 mEq/L (98-107)
[2019-07-20] MEDS: FENTANYL CITRATE/PF 1,000 MCG in SODIUM CHLORIDE 0.9% 80 ML IV PRN ×3 (05:58→22:43)
[2019-07-20] MEDS: INSULIN LISPRO 100 UNITS/ML SUBCUT SCH ×3 (06:00→12:00)
[2019-07-20] MEDS: AMIKACIN SULFATE 600 MG in SODIUM CHLORIDE 0.9% 100 ML IV SCH ×2 (06:01→17:37)
[2019-07-20] MEDS: SODIUM CHLORIDE 0.9% INJ 3ML FLUSH IVF SCH ×3 (06:40→21:14)
[2019-07-20 08:41] LABS: BG BASE EXCESS 9.3 mmol/L (-2.0-2.0); BG CARBOXYHEMOGLOBIN 0.3 % (0.5-1.5); BG DEOXYHEMOGLOBIN 3.3 % (0.0-5.0); BG FRACTION INSPIRED OXYGEN 90; BG HCO3 ACT 34.7 mmol/L (22.0-26.0); BG METHEMOGLOBIN 0.4 % (0.0-1.5); BG OXYGEN SATURATION 96.7 % (92.0-98.5); BG PCO2 53.5 mmHg (35.0-45.0); BG SAMPLE SITE RIGHT RADIAL; BG TIDAL VOLUME(mL) 500 mL; BG TOTAL HEMOGLOBIN 8.3 g/dL (12.0-18.0); BG VENT MODE PRVC; BG VENT RATE 20 set
[2019-07-20] MEDS: AMLODIPINE 2.5MG TABLET NG SCH ×2 (09:00→21:00)
[2019-07-20 09:06] LABS: PLATELET ESTIMATE NORMAL
[2019-07-20] MEDS: DOCUSATE SODIUM SUGAR FREE 100MG/10ML UDC NG SCH (09:16)
[2019-07-20] MEDS: ENOXAPARIN 80MG/0.8ML SYR SUBCUT SCH (09:17)
[2019-07-20] MEDS: COLISTIMETHATE SODIUM 150MG/VIAL INH SCH ×2 (09:17→20:10)
[2019-07-20] MEDS: FOLIC ACID 1MG TABLET PO SCH (09:17)
[2019-07-20] MEDS: THIAMINE HCL 100MG TABLET PO SCH (09:18)
[2019-07-20] MEDS: INSULIN GLARGINE UD 100 UNITS/ML SYR SUBCUT SCH ×2 (09:19→21:14)
[2019-07-20] MEDS: MIDAZOLAM HCL 100 MG in DEXT 5% WATER 80 ML IV PRN ×2 (12:07→22:25)
[2019-07-21] VITALS (89 sets, daily range): BP systolic 71–131; BP diastolic 33–70
[2019-07-21] MEDS: ACETAMINOPHEN 325MG TABLET PO PRN (00:49)
[2019-07-21] MEDS: MEROPENEM 1,000 MG in SODIUM CHLORIDE 0.9% 100 ML IV SCH ×3 (00:49→16:53)
[2019-07-21] MEDS: BLOOD SUGAR DIAGNOSTIC STRIP TEST SCH ×4 (00:51→17:15)
[2019-07-21] MEDS: ALBUTEROL 6.7GM HFA INHALER ORI SCH ×6 (00:53→20:40)
[2019-07-21] MEDS: INSULIN LISPRO 100 UNITS/ML SUBCUT SCH ×4 (06:00→17:15)
[2019-07-21] MEDS: SODIUM CHLORIDE 0.9% INJ 3ML FLUSH IVF SCH ×3 (06:26→22:05)
[2019-07-21] MEDS: AMIKACIN SULFATE 600 MG in SODIUM CHLORIDE 0.9% 100 ML IV SCH (06:27)
[2019-07-21] MEDS: AMLODIPINE 2.5MG TABLET NG SCH ×2 (07:58→21:00)
[2019-07-21 08:11] LABS: BG BASE EXCESS 12.8 mmol/L (-2.0-2.0); BG CARBOXYHEMOGLOBIN 0.3 % (0.5-1.5); BG DEOXYHEMOGLOBIN 5.5 % (0.0-5.0); BG FRACTION INSPIRED OXYGEN 90; BG HCO3 ACT 38.6 mmol/L (22.0-26.0); BG METHEMOGLOBIN 0.3 % (0.0-1.5); BG OXYGEN SATURATION 94.5 % (92.0-98.5); BG OXYHEMOGLOBIN 93.9 % (94.0-97.0); BG PCO2 59.8 mmHg (35.0-45.0); BG PH 7.428 (7.350-7.450); BG SAMPLE SITE RIGHT RADIAL; BG TIDAL VOLUME(mL) 500 mL; BG TOTAL HEMOGLOBIN 7.9 g/dL (12.0-18.0); BG VENT MODE PRVC; BG VENT RATE 20 set
[2019-07-21] MEDS: COLISTIMETHATE SODIUM 150MG/VIAL INH SCH (08:13)
[2019-07-21] MEDS: DOCUSATE SODIUM SUGAR FREE 100MG/10ML UDC NG SCH (08:16)
[2019-07-21] MEDS: THIAMINE HCL 100MG TABLET PO SCH (08:16)
[2019-07-21] MEDS: FOLIC ACID 1MG TABLET PO SCH (08:16)
[2019-07-21] MEDS: FENTANYL CITRATE/PF 1,000 MCG in SODIUM CHLORIDE 0.9% 80 ML IV PRN ×2 (08:18→18:04)
[2019-07-21] MEDS: MIDAZOLAM HCL 100 MG in DEXT 5% WATER 80 ML IV PRN ×2 (08:18→18:03)
[2019-07-21] MEDS: INSULIN GLARGINE UD 100 UNITS/ML SYR SUBCUT SCH ×2 (10:00→22:00)
[2019-07-22] VITALS (95 sets, daily range): BP systolic 98–144; BP diastolic 50–80
[2019-07-22] MEDS: ACETAMINOPHEN 325MG TABLET PO PRN (00:24)
[2019-07-22] MEDS: MEROPENEM 1,000 MG in SODIUM CHLORIDE 0.9% 100 ML IV SCH ×3 (00:25→17:54)
[2019-07-22] MEDS: BLOOD SUGAR DIAGNOSTIC STRIP TEST SCH ×4 (00:25→17:52)
[2019-07-22] MEDS: ALBUTEROL 6.7GM HFA INHALER ORI SCH ×7 (00:25→16:35)
[2019-07-22] MEDS: MIDAZOLAM HCL 100 MG in DEXT 5% WATER 80 ML IV PRN ×2 (04:46→15:11)
[2019-07-22 05:48] LABS: HEMATOCRIT. 23.2 % (42.0-52.0); HEMOGLOBIN. 7.6 g/dL (14.0-18.0); MEAN CORPUSCULAR HEMOGLOBIN 31.1 pg (28.0-32.0); MEAN CORPUSCULAR VOLUME 94.7 fL (80.0-94.0); MEAN PLATELET VOLUME 7.4 fl (7.4-10.4); PLATELET 340 x1000/uL (130-400); RED BLOOD CELL COUNT 2.44 mill/uL (4.7-6.1); RED CELL DISTRIBUTION WIDTH 13.7 % (11.6-14.6)
[2019-07-22 05:59] LABS: CHLORIDE 113 mEq/L (98-107)
[2019-07-22] MEDS: INSULIN LISPRO 100 UNITS/ML SUBCUT SCH ×4 (06:00→17:53)
[2019-07-22 06:03] LABS: PHOSPHORUS 2.9 mg/dL (2.5-4.9)
[2019-07-22] MEDS: SODIUM CHLORIDE 0.9% INJ 3ML FLUSH IVF SCH ×3 (06:48→22:40)
[2019-07-22] MEDS: DEXTROSE 50% WATER 50ML SYRINGE IV PRN (06:48)
[2019-07-22] MEDS: FENTANYL CITRATE/PF 1,000 MCG in SODIUM CHLORIDE 0.9% 80 ML IV PRN ×2 (07:00→18:06)
[2019-07-22] MEDS ORDERED: LIDOCAINE HCL/EPINEPHRINE 1%-EPI 1:100,000 20 ML VIAL INFIL NR (08:15)
[2019-07-22] MEDS: FOLIC ACID 1MG TABLET PO SCH (08:54)
[2019-07-22] MEDS: THIAMINE HCL 100MG TABLET PO SCH (08:54)
[2019-07-22] MEDS: AMLODIPINE 2.5MG TABLET NG SCH ×2 (08:55→21:00)
[2019-07-22] MEDS: DOCUSATE SODIUM SUGAR FREE 100MG/10ML UDC NG SCH (08:55)
[2019-07-22 09:05] LABS: PLATELET ESTIMATE NORMAL
[2019-07-22 09:15] LABS: BG BASE EXCESS 16.4 mmol/L (-2.0-2.0); BG CARBOXYHEMOGLOBIN 0.3 % (0.5-1.5); BG FRACTION INSPIRED OXYGEN 90; BG HCO3 ACT 41.7 mmol/L (22.0-26.0); BG METHEMOGLOBIN 0.8 % (0.0-1.5); BG OXYHEMOGLOBIN 95.9 % (94.0-97.0); BG PCO2 58.2 mmHg (35.0-45.0); BG PH 7.473 (7.350-7.450); BG PO2 105.2 mmHg (75.0-100.0); BG SAMPLE SITE RIGHT RADIAL; BG TIDAL VOLUME(mL) 500 mL; BG TOTAL HEMOGLOBIN 7.3 g/dL (12.0-18.0); BG VENT MODE VENT- PRVC; BG VENT RATE 20 set
[2019-07-22] MEDS ORDERED: PROPOFOL 10MG/ML 100ML 100 ML IV PRN (09:15)
[2019-07-22] MEDS: DEXTROSE 5% WATER 1,000 ML IV SCH ×2 (09:30→21:46)
[2019-07-22] MEDS: INSULIN GLARGINE UD 100 UNITS/ML SYR SUBCUT SCH ×2 (10:00→22:00)
[2019-07-23] VITALS (92 sets, daily range): BP systolic 88–154; BP diastolic 53–78
[2019-07-23] MEDS: BLOOD SUGAR DIAGNOSTIC STRIP TEST SCH ×4 (00:20→18:00)
[2019-07-23] MEDS: ALBUTEROL 6.7GM HFA INHALER ORI SCH ×7 (00:25→22:20)
[2019-07-23] MEDS: MEROPENEM 1,000 MG in SODIUM CHLORIDE 0.9% 100 ML IV SCH ×2 (01:26→08:58)
[2019-07-23] MEDS: MIDAZOLAM HCL 100 MG in DEXT 5% WATER 80 ML IV PRN ×2 (02:59→12:48)
[2019-07-23] MEDS: FENTANYL CITRATE/PF 1,000 MCG in SODIUM CHLORIDE 0.9% 80 ML IV PRN ×2 (04:54→15:24)
[2019-07-23 05:32] LABS: CHLORIDE 110 mEq/L (98-107)
[2019-07-23] MEDS: INSULIN LISPRO 100 UNITS/ML SUBCUT SCH ×4 (06:00→18:00)
[2019-07-23] MEDS: SODIUM CHLORIDE 0.9% INJ 3ML FLUSH IVF SCH ×3 (06:26→21:08)
[2019-07-23] MEDS: DOCUSATE SODIUM SUGAR FREE 100MG/10ML UDC NG SCH (08:28)
[2019-07-23] MEDS: THIAMINE HCL 100MG TABLET PO SCH (08:29)
[2019-07-23] MEDS: FOLIC ACID 1MG TABLET PO SCH (08:29)
[2019-07-23 08:54] LABS: BG BASE EXCESS 13.4 mmol/L (-2.0-2.0); BG CARBOXYHEMOGLOBIN 2.2 % (0.5-1.5); BG DEOXYHEMOGLOBIN 8.6 % (0.0-5.0); BG FRACTION INSPIRED OXYGEN 100; BG HCO3 ACT 40.6 mmol/L (22.0-26.0); BG OXYGEN SATURATION 91.2 % (92.0-98.5); BG OXYHEMOGLOBIN 89.2 % (94.0-97.0); BG PCO2 73.3 mmHg (35.0-45.0); BG PH 7.361 (7.350-7.450); BG PO2 63.3 mmHg (75.0-100.0); BG SAMPLE SITE RIGHT FEMORAL; BG TIDAL VOLUME(mL) 500 mL; BG TOTAL HEMOGLOBIN 7.8 g/dL (12.0-18.0); BG VENT MODE VENT- PRVC; BG VENT RATE 26 set
[2019-07-23] MEDS: AMLODIPINE 2.5MG TABLET NG SCH ×2 (08:56→21:00)
[2019-07-23] MEDS: INSULIN GLARGINE UD 100 UNITS/ML SYR SUBCUT SCH ×2 (09:59→22:55)
[2019-07-23] MEDS: DEXTROSE 5% WATER 1,000 ML IV SCH (13:12)
[2019-07-23] MEDS: LEVOFLOXACIN 500MG PREMIX 100 ML IV SCH (14:16)
[2019-07-24] VITALS (92 sets, daily range): BP systolic 94–170; BP diastolic 49–109
[2019-07-24] MEDS: FENTANYL CITRATE/PF 1,000 MCG in SODIUM CHLORIDE 0.9% 80 ML IV PRN ×3 (00:21→23:02)
[2019-07-24] MEDS: MIDAZOLAM HCL 100 MG in DEXT 5% WATER 80 ML IV PRN ×3 (00:21→21:28)
[2019-07-24] MEDS: BLOOD SUGAR DIAGNOSTIC STRIP TEST SCH ×4 (00:54→18:00)
[2019-07-24] MEDS: ALBUTEROL 6.7GM HFA INHALER ORI SCH ×5 (01:42→16:30)
[2019-07-24] MEDS: DEXTROSE 5% WATER 1,000 ML IV SCH ×2 (02:14→14:50)
[2019-07-24 05:50] LABS: CHLORIDE 107 mEq/L (98-107)
[2019-07-24] MEDS: INSULIN LISPRO 100 UNITS/ML SUBCUT SCH ×4 (06:00→17:00)
[2019-07-24] MEDS: SODIUM CHLORIDE 0.9% INJ 3ML FLUSH IVF SCH ×3 (06:14→21:32)
[2019-07-24] MEDS: AMLODIPINE 2.5MG TABLET NG SCH ×2 (09:00→22:25)
[2019-07-24] MEDS: THIAMINE HCL 100MG TABLET PO SCH (09:00)
[2019-07-24] MEDS: FOLIC ACID 1MG TABLET PO SCH (09:00)
[2019-07-24 09:38] LABS: MEAN CORPUSCULAR HEMOGLOBIN 30.9 pg (28.0-32.0); MEAN CORPUSCULAR VOLUME 96.6 fL (80.0-94.0); PLATELET 273 x1000/uL (130-400); RED BLOOD CELL COUNT 2.28 mill/uL (4.7-6.1); RED CELL DISTRIBUTION WIDTH 13.9 % (11.6-14.6)
[2019-07-24] MEDS: DOCUSATE SODIUM SUGAR FREE 100MG/10ML UDC NG SCH (10:00)
[2019-07-24] MEDS: INSULIN GLARGINE UD 100 UNITS/ML SYR SUBCUT SCH ×2 (10:00→22:26)
[2019-07-24 10:04] LABS: BG BASE EXCESS 10.6 mmol/L (-2.0-2.0); BG CARBOXYHEMOGLOBIN 0.3 % (0.5-1.5); BG DEOXYHEMOGLOBIN 6.7 % (0.0-5.0); BG FRACTION INSPIRED OXYGEN 100; BG HCO3 ACT 36.5 mmol/L (22.0-26.0); BG METHEMOGLOBIN 0.4 % (0.0-1.5); BG OXYGEN SATURATION 93.3 % (92.0-98.5); BG OXYHEMOGLOBIN 92.6 % (94.0-97.0); BG PCO2 59.2 mmHg (35.0-45.0); BG PH 7.408 (7.350-7.450); BG PO2 73.3 mmHg (75.0-100.0); BG SAMPLE SITE RIGHT RADIAL; BG TIDAL VOLUME(mL) 500 mL; BG TOTAL HEMOGLOBIN 7.3 g/dL (12.0-18.0); BG VENT MODE VENT- PRVC; BG VENT RATE 30 set
[2019-07-24 10:25] LABS: PLATELET ESTIMATE NORMAL
[2019-07-24] MEDS: LEVOFLOXACIN 500MG PREMIX 100 ML IV SCH (14:00)
[2019-07-24] MEDS: IRON SUCROSE COMPLEX 100 MG/5 ML ML IV SCH (16:00)
[2019-07-24] MEDS ORDERED: FERROUS SULFATE 325MG TABLET PO SCH (17:00)
[2019-07-25] VITALS (99 sets, daily range): BP systolic 99–160; BP diastolic 54–77
[2019-07-25] MEDS: INSULIN LISPRO 100 UNITS/ML SUBCUT SCH ×4 (06:00→18:00)
[2019-07-25] MEDS: BLOOD SUGAR DIAGNOSTIC STRIP TEST SCH ×4 (06:00→17:08)
[2019-07-25] MEDS: SODIUM CHLORIDE 0.9% INJ 3ML FLUSH IVF SCH ×3 (06:06→21:03)
[2019-07-25] MEDS: DEXTROSE 5% WATER 1,000 ML IV SCH ×3 (06:11→21:03)
[2019-07-25 07:48] LABS: HEMATOCRIT. 21.7 % (42.0-52.0); HEMOGLOBIN. 7.1 g/dL (14.0-18.0); MEAN CORPUSCULAR HEMOGLOBIN 31.6 pg (28.0-32.0); MEAN CORPUSCULAR VOLUME 96.6 fL (80.0-94.0); MEAN PLATELET VOLUME 7.5 fl (7.4-10.4); PLATELET 271 x1000/uL (130-400); RED BLOOD CELL COUNT 2.24 mill/uL (4.7-6.1); RED CELL DISTRIBUTION WIDTH 13.8 % (11.6-14.6)
[2019-07-25 07:59] LABS: CHLORIDE 104 mEq/L (98-107)
[2019-07-25] MEDS: MIDAZOLAM HCL 100 MG in DEXT 5% WATER 80 ML IV PRN ×2 (08:23→18:55)
[2019-07-25] MEDS: FENTANYL CITRATE/PF 1,000 MCG in SODIUM CHLORIDE 0.9% 80 ML IV PRN ×2 (08:54→19:53)
[2019-07-25] MEDS: BUDESONIDE 0.5MG/2ML NEB HHN SCH (09:15)
[2019-07-25] MEDS: IPRATROPIUM/ALBUTEROL 0.5-3(2.5)MG/3ML NEB HHN SCH ×2 (09:15→16:32)
[2019-07-25 09:20] LABS: PLATELET ESTIMATE NORMAL
[2019-07-25] MEDS: AMLODIPINE 2.5MG TABLET NG SCH ×2 (09:49→21:46)
[2019-07-25] MEDS: FOLIC ACID 1MG TABLET PO SCH (09:49)
[2019-07-25] MEDS: THIAMINE HCL 100MG TABLET PO SCH (09:49)
[2019-07-25] MEDS: DOCUSATE SODIUM SUGAR FREE 100MG/10ML UDC NG SCH (09:49)
[2019-07-25 10:05] LABS: BG BASE EXCESS 9.3 mmol/L (-2.0-2.0); BG CARBOXYHEMOGLOBIN 1.3 % (0.5-1.5); BG DEOXYHEMOGLOBIN 2.4 % (0.0-5.0); BG FRACTION INSPIRED OXYGEN 100; BG HCO3 ACT 35.5 mmol/L (22.0-26.0); BG METHEMOGLOBIN 0.3 % (0.0-1.5); BG OXYGEN SATURATION 97.6 % (92.0-98.5); BG PCO2 61.5 mmHg (35.0-45.0); BG PH 7.379 (7.350-7.450); BG PO2 116.5 mmHg (75.0-100.0); BG SAMPLE SITE RIGHT RADIAL; BG TIDAL VOLUME(mL) 500 mL; BG TOTAL HEMOGLOBIN 6.8 g/dL (12.0-18.0); BG VENT MODE VENT- PRVC; BG VENT RATE 26 set
[2019-07-25] MEDS: INSULIN GLARGINE UD 100 UNITS/ML SYR SUBCUT SCH ×2 (12:40→21:48)
[2019-07-25] MEDS: LEVOFLOXACIN 500MG PREMIX 100 ML IV SCH (15:09)
[2019-07-25] MEDS: IRON SUCROSE COMPLEX 100 MG/5 ML ML IV SCH (15:09)
[2019-07-26] VITALS (83 sets, daily range): BP systolic 112–155; BP diastolic 55–79
[2019-07-26] MEDS: BLOOD SUGAR DIAGNOSTIC STRIP TEST SCH ×4 (00:11→17:31)
[2019-07-26] MEDS: FENTANYL CITRATE/PF 1,000 MCG in SODIUM CHLORIDE 0.9% 80 ML IV PRN ×4 (02:21→23:42)
[2019-07-26] MEDS: MIDAZOLAM HCL 100 MG in DEXT 5% WATER 80 ML IV PRN ×2 (04:35→15:25)
[2019-07-26] MEDS: INSULIN LISPRO 100 UNITS/ML SUBCUT SCH ×4 (06:00→17:31)
[2019-07-26] MEDS: SODIUM CHLORIDE 0.9% INJ 3ML FLUSH IVF SCH ×3 (06:24→21:48)
[2019-07-26] MEDS: THIAMINE HCL 100MG TABLET PO SCH (08:54)
[2019-07-26] MEDS: AMLODIPINE 2.5MG TABLET NG SCH ×2 (08:54→21:48)
[2019-07-26] MEDS: FOLIC ACID 1MG TABLET PO SCH (08:54)
[2019-07-26] MEDS: DOCUSATE SODIUM SUGAR FREE 100MG/10ML UDC NG SCH (08:54)
[2019-07-26] MEDS: IPRATROPIUM/ALBUTEROL 0.5-3(2.5)MG/3ML NEB HHN SCH ×3 (09:44→19:45)
[2019-07-26] MEDS: BUDESONIDE 0.5MG/2ML NEB HHN SCH ×2 (09:45→19:45)
[2019-07-26] MEDS: DEXTROSE 5% WATER 1,000 ML IV SCH (11:16)
[2019-07-26] MEDS: INSULIN GLARGINE UD 100 UNITS/ML SYR SUBCUT SCH ×2 (11:35→21:59)
[2019-07-26] MEDS: LEVOFLOXACIN 500MG PREMIX 100 ML IV SCH (14:53)
[2019-07-26] MEDS: IRON SUCROSE COMPLEX 100 MG/5 ML ML IV SCH (15:55)
[2019-07-27] VITALS (91 sets, daily range): BP systolic 111–152; BP diastolic 52–73
[2019-07-27] MEDS: DEXTROSE 5% WATER 1,000 ML IV SCH (01:15)
[2019-07-27] MEDS: MIDAZOLAM HCL 100 MG in DEXT 5% WATER 80 ML IV PRN ×3 (02:56→23:32)
[2019-07-27] MEDS: INSULIN LISPRO 100 UNITS/ML SUBCUT SCH ×4 (06:00→18:00)
[2019-07-27] MEDS: BLOOD SUGAR DIAGNOSTIC STRIP TEST SCH ×4 (06:30→18:14)
[2019-07-27] MEDS: SODIUM CHLORIDE 0.9% INJ 3ML FLUSH IVF SCH ×3 (06:31→21:57)
[2019-07-27] MEDS: FENTANYL CITRATE/PF 1,000 MCG in SODIUM CHLORIDE 0.9% 80 ML IV PRN ×3 (06:56→21:06)
[2019-07-27] MEDS: BUDESONIDE 0.5MG/2ML NEB HHN SCH ×2 (08:30→20:56)
[2019-07-27] MEDS: IPRATROPIUM/ALBUTEROL 0.5-3(2.5)MG/3ML NEB HHN SCH ×4 (08:30→20:54)
[2019-07-27] MEDS: AMLODIPINE 2.5MG TABLET NG SCH ×2 (08:56→21:00)
[2019-07-27] MEDS: FOLIC ACID 1MG TABLET PO SCH (08:56)
[2019-07-27] MEDS: THIAMINE HCL 100MG TABLET PO SCH (08:56)
[2019-07-27] MEDS: DOCUSATE SODIUM SUGAR FREE 100MG/10ML UDC NG SCH (08:56)
[2019-07-27] MEDS: INSULIN GLARGINE UD 100 UNITS/ML SYR SUBCUT SCH ×2 (09:01→22:02)
[2019-07-27] MEDS: LEVOFLOXACIN 500MG PREMIX 100 ML IV SCH (13:07)
[2019-07-27] MEDS: IRON SUCROSE COMPLEX 100 MG/5 ML ML IV SCH (14:40)
[2019-07-27 20:29] LABS: MEAN CORPUSCULAR VOLUME 98.8 fL (80.0-94.0); MEAN PLATELET VOLUME 7.4 fl (7.4-10.4); PLATELET 249 x1000/uL (130-400); RED BLOOD CELL COUNT 2.04 mill/uL (4.7-6.1); RED CELL DISTRIBUTION WIDTH 13.5 % (11.6-14.6)
[2019-07-27 20:37] LABS: CHLORIDE 96 mEq/L (98-107)
[2019-07-27 20:38] LABS: HEMATOCRIT. 20.1 % (42.0-52.0); HEMOGLOBIN. 6.5 g/dL (14.0-18.0)
[2019-07-27] MEDS ORDERED: BUDESONIDE 0.5MG/2ML NEB ONE (21:00)
[2019-07-27 21:13] LABS: PLATELET ESTIMATE NORMAL
[2019-07-28] VITALS (77 sets, daily range): BP systolic 112–140; BP diastolic 55–72
[2019-07-28] MEDS: DEXTROSE 5% WATER 1,000 ML IV SCH ×3 (00:12→20:53)
[2019-07-28] MEDS: IPRATROPIUM/ALBUTEROL 0.5-3(2.5)MG/3ML NEB HHN SCH ×4 (01:08→20:23)
[2019-07-28] MEDS: FENTANYL CITRATE/PF 1,000 MCG in SODIUM CHLORIDE 0.9% 80 ML IV PRN ×4 (03:12→22:09)
[2019-07-28] MEDS: INSULIN LISPRO 100 UNITS/ML SUBCUT SCH ×5 (06:00→23:52)
[2019-07-28] MEDS: BLOOD SUGAR DIAGNOSTIC STRIP TEST SCH ×5 (06:00→23:53)
[2019-07-28] MEDS: SODIUM CHLORIDE 0.9% INJ 3ML FLUSH IVF SCH ×3 (06:14→22:37)
[2019-07-28] MEDS: MIDAZOLAM HCL 100 MG in DEXT 5% WATER 80 ML IV PRN ×2 (08:36→19:56)
[2019-07-28] MEDS: THIAMINE HCL 100MG TABLET PO SCH (09:22)
[2019-07-28] MEDS: FOLIC ACID 1MG TABLET PO SCH (09:22)
[2019-07-28] MEDS: DOCUSATE SODIUM SUGAR FREE 100MG/10ML UDC NG SCH (09:22)
[2019-07-28] MEDS: AMLODIPINE 2.5MG TABLET NG SCH ×2 (09:22→21:00)
[2019-07-28] MEDS: INSULIN GLARGINE UD 100 UNITS/ML SYR SUBCUT SCH ×2 (09:23→22:00)
[2019-07-28] MEDS: ACETAMINOPHEN 325MG TABLET PO PRN (11:44)
[2019-07-28] MEDS: LEVOFLOXACIN 500MG PREMIX 100 ML IV SCH (13:40)
[2019-07-29] VITALS (31 sets, daily range): BP systolic 76–133; BP diastolic 39–63
[2019-07-29] MEDS: IPRATROPIUM/ALBUTEROL 0.5-3(2.5)MG/3ML NEB HHN SCH ×2 (00:38→08:54)
[2019-07-29] MEDS: SODIUM CHLORIDE 0.9% INJ 3ML FLUSH IVF SCH (05:52)
[2019-07-29] MEDS: INSULIN LISPRO 100 UNITS/ML SUBCUT SCH (05:52)
[2019-07-29] MEDS: BLOOD SUGAR DIAGNOSTIC STRIP TEST SCH (05:53)
[2019-07-29] MEDS: FENTANYL CITRATE/PF 1,000 MCG in SODIUM CHLORIDE 0.9% 80 ML IV PRN ×2 (07:01→09:34)
[2019-07-29 07:42] LABS: BG BASE EXCESS 13.7 mmol/L (-2.0-2.0); BG CARBOXYHEMOGLOBIN 1.7 % (0.5-1.5); BG FRACTION INSPIRED OXYGEN 100; BG HCO3 ACT 42.9 mmol/L (22.0-26.0); BG METHEMOGLOBIN 0.4 % (0.0-1.5); BG OXYGEN SATURATION 76.5 % (92.0-98.5); BG OXYHEMOGLOBIN 74.9 % (94.0-97.0); BG PCO2 99.5 mmHg (35.0-45.0); BG PH 7.253 (7.350-7.450); BG PO2 44.3 mmHg (75.0-100.0); BG SAMPLE SITE RIGHT RADIAL; BG TIDAL VOLUME(mL) 500 mL; BG TOTAL HEMOGLOBIN 7.7 g/dL (12.0-18.0); BG VENT MODE PRVC; BG VENT RATE 26 set
[2019-07-29] MEDS ORDERED: SODIUM BICARBONATE 8.4% 1 MEQ/ML 50ML SYR IV NR (08:00)
[2019-07-29] MEDS: AMLODIPINE 2.5MG TABLET NG SCH (08:15)
[2019-07-29] MEDS: DOCUSATE SODIUM SUGAR FREE 100MG/10ML UDC NG SCH (08:15)
[2019-07-29] MEDS: THIAMINE HCL 100MG TABLET PO SCH (08:15)
[2019-07-29] MEDS: FOLIC ACID 1MG TABLET PO SCH (08:15)
[2019-07-29] MEDS ORDERED: SODIUM BICARBONATE 100 MEQ in DEXTROSE 5% WATER 900 ML IV SCH (10:00)
[2019-07-29] MEDS: DEXTROSE 5% WATER 1,000 ML IV SCH (10:46)
== END 2019-07-29 16:10 | disposition expired | DRG 4 ==
LOC: ER 07:44 → EDBEDREQTM 08:57 → EDBEDREQ 08:57 → EDBEDREQSVC 08:57 → ENRESERV 11:24 → 7WST 11:35 → EDBEDREQ 11:36 → EDBEDREQTM 11:36 → MICUSO 07-05 15:11
PROVIDERS: ADMIT Internal Medicine; ATTEND Internal Medicine
PROC: 5A1955Z Respiratory Ventilation, Greater than 96 Consecutive Hours (ICD-10-PCS; principal; 2019-07-05)
PROC: 0BH17EZ Insertion of Endotracheal Airway into Trachea, Via Natural or Artificial Opening (ICD-10-PCS; 2019-07-05)
PROC: 02HV33Z Insertion of Infusion Device into Superior Vena Cava, Percutaneous Approach (ICD-10-PCS; 2019-07-05)
PROC: B548ZZA Ultrasonography of Superior Vena Cava, Guidance (ICD-10-PCS; 2019-07-05)
PROC: 0BH17EZ Insertion of Endotracheal Airway into Trachea, Via Natural or Artificial Opening (ICD-10-PCS; 2019-07-11)
PROC: 5A1955Z Respiratory Ventilation, Greater than 96 Consecutive Hours (ICD-10-PCS; 2019-07-11)
PROC: 05HY33Z Insertion of Infusion Device into Upper Vein, Percutaneous Approach (ICD-10-PCS; 2019-07-11)
PROC: B54MZZA Ultrasonography of Right Upper Extremity Veins, Guidance (ICD-10-PCS; 2019-07-11)
PROC: 0B110F4 Bypass Trachea to Cutaneous with Tracheostomy Device, Open Approach (ICD-10-PCS; 2019-07-22)
PROC: 0GBJ0ZZ Excision of Thyroid Gland Isthmus, Open Approach (ICD-10-PCS; 2019-07-22)
DX: A41.89 Other specified sepsis (principal); U07.1 COVID-19; E43 Unspecified severe protein-calorie malnutrition; J15.6 Pneumonia due to other Gram-negative bacteria; J95.851 Ventilator associated pneumonia; G93.41 Metabolic encephalopathy; J12.89 Other viral pneumonia; E87.0 Hyperosmolality and hypernatremia; D68.59 Other primary thrombophilia; J96.01 Acute respiratory failure with hypoxia; E87.2 Acidosis; D64.9 Anemia, unspecified; Z51.5 Encounter for palliative care; B97.89 Other viral agents as the cause of diseases classified elsewhere; I10 Essential (primary) hypertension; N40.0 Benign prostatic hyperplasia without lower urinary tract symptoms; Z66 Do not resuscitate; D72.810 Lymphocytopenia; R73.9 Hyperglycemia, unspecified; E87.5 Hyperkalemia; S30.1XXA Contusion of abdominal wall, initial encounter; Y84.8 Other medical procedures as the cause of abnormal reaction of the patient, or of later complication, without mention of misadventure at the time of the procedure; Z82.49 Family history of ischemic heart disease and other diseases of the circulatory system; Z43.0 Encounter for attention to tracheostomy; Z68.29 Body mass index [BMI] 29.0-29.9, adult
CPT/HCPCS: 36415; 36600; 71045; 76881; 76937; 80048; 80053; 80076; 80150; 80202; 81003; 82375; 82550; 82728; 82805; 82962; 83036; 83605; 83615; 83735; 83880; 84100; 84145; 84478; 84484; 85025; 85379; 85384; 86140; 87070; 87077; 87186; 87804; 93005; 94002; 94003; 94640; 99291; C1725; J0278; J0456; J0692; J0696; J0770; J1650; J1815; J1956; J2060; J2185; J2250; J2704; J2920; J3010; J3370; J3490; J7050; J7060; J7070; J7626; Q9957; U0003-CS